=== PATIENT | female | born 1985 | race Caucasian/White ===

== ENCOUNTER 2018-04-17 06:02 | Emergency (ER) | payer OTHER ==
[~2018-04-17] VITALS: Ht 160 cm; Wt 67.3 kg
[2018-04-17 06:51] VITALS: BP 149/101
== END 2018-04-17 07:01 | disposition home or self-care (01) ==
LOC: EMS 06:02
DX: R07.89 Other chest pain (principal); V49.60XA Unspecified car occupant injured in collision with unspecified motor vehicles in traffic accident, initial encounter; Y93.89 Activity, other specified; Y92.89 Other specified places as the place of occurrence of the external cause; Y99.8 Other external cause status
CPT/HCPCS: 93005